=== PATIENT | male | born 1995 | race Caucasian/White ===

== ENCOUNTER 2017-06-28 08:20 | Emergency (ER) | payer MEDICARE, MEDICAID ==
[~2017-06-28] VITALS: Ht 167.6 cm; Wt 73.0 kg
[~2017-06-28 08:20] MED LIST: CLIN-79 PO; CLIN-80 PO; MUPI15CR TP; NO HOME MEDS
[2017-06-28 08:33] VITALS: BP 134/86
== END 2017-06-28 08:44 ==
LOC: ER 08:20
DX: Z02.89 Encounter for other administrative examinations (principal); F15.10 Other stimulant abuse, uncomplicated; F12.10 Cannabis abuse, uncomplicated
CPT/HCPCS: 99283

== ENCOUNTER 2020-05-15 20:28 | Emergency (ER) | payer MEDICAID, MEDICARE ==
[~2020-05-15] VITALS: Ht 182.9 cm; Wt 105.3 kg
[~2020-05-15 20:28] MED LIST changes: -CLIN-79 PO; -CLIN-80 PO; +CLIN-97 PO; +CLIN150C8 PO
[2020-05-15 20:36] VITALS: BP 141/91
[2020-05-15] MEDS ORDERED: CEPH500C5 PO (22:09)
[2020-05-15] MEDS ORDERED: SULF1TAB49 PO (22:09)
== END 2020-05-15 22:20 | disposition home or self-care (01) ==
LOC: ER 20:29
DX: L02.411 Cutaneous abscess of right axilla (principal); F12.90 Cannabis use, unspecified, uncomplicated; F15.90 Other stimulant use, unspecified, uncomplicated; F11.90 Opioid use, unspecified, uncomplicated; Z79.2 Long term (current) use of antibiotics
CPT/HCPCS: 99283

== ENCOUNTER 2020-06-25 23:55 | Emergency (ER) | payer MEDICAID ==
[~2020-06-25] VITALS: Ht 182.9 cm; Wt 97.0 kg
[2020-06-25 23:59] VITALS: BP 154/103
--- NOTE | 2020-06-26 00:14 | NUR ---
AREA OF REDNESS MARKED AND DATED WITH SKIN MARKER
[2020-06-26] MEDS ORDERED: SULF1TAB49 PO (00:44)
[2020-06-26] MEDS ORDERED: CEPH-585 PO (00:44)
== END 2020-06-26 01:14 | disposition left against medical advice (07) ==
LOC: ER 23:55
DX: L03.113 Cellulitis of right upper limb (principal); F17.200 Nicotine dependence, unspecified, uncomplicated; F12.90 Cannabis use, unspecified, uncomplicated; F15.90 Other stimulant use, unspecified, uncomplicated; F11.90 Opioid use, unspecified, uncomplicated; Z72.89 Other problems related to lifestyle; Z79.2 Long term (current) use of antibiotics; Z79.899 Other long term (current) drug therapy
CPT/HCPCS: 99284

== ENCOUNTER 2020-10-05 15:50 | Outpatient (CLI) | payer MEDICAID ==
[~2020-10-05 15:50] MED LIST changes: +CEPH-585 PO
== END 2020-10-05 23:59 | disposition home or self-care (01) ==
LOC: RAD 15:50
DX: F11.20 Opioid dependence, uncomplicated (principal)
CPT/HCPCS: 93005

== ENCOUNTER 2021-01-29 12:58 | Outpatient (CLI) | payer MEDICAID | END 2021-01-29 23:59 | disposition home or self-care (01) | LOC: RAD 12:58 | DX: R94.31 Abnormal electrocardiogram [ECG] [EKG] (principal); F11.20 Opioid dependence, uncomplicated | CPT/HCPCS: 93005 ==

== ENCOUNTER 2023-09-04 17:02 | Emergency (ER) | payer MEDICAID ==
[~2023-09-04] VITALS: Ht 177.8 cm; Wt 104.0 kg
[~2023-09-04 17:02] MED LIST changes: -CEPH-585 PO; +CLIN-214 PO; -CLIN150C8 PO
[2023-09-04 17:04] VITALS: BP 114/95; PULSE 67; O2SAT 97
[2023-09-04] MEDS ORDERED: ketorolac trometh inj. 60 MG/2 ML VIAL IM ONE (17:15)
[2023-09-04] MEDS ORDERED: AMOX-580 PO (17:18)
[2023-09-04] MEDS: dexamethasone sod phosphate 10mg/ml inj IM STA (17:27)
[2023-09-04] MEDS: ketorolac tromethamine 15mg/ml inj. IM ONE (17:28)
[2023-09-04 17:53] VITALS: RESP 16; TEMP 98.7
== END 2023-09-04 17:54 | disposition home or self-care (01) ==
LOC: ER 17:02
DX: K04.7 Periapical abscess without sinus (principal); K08.89 Other specified disorders of teeth and supporting structures; K02.9 Dental caries, unspecified; F12.90 Cannabis use, unspecified, uncomplicated; F15.90 Other stimulant use, unspecified, uncomplicated; Z79.2 Long term (current) use of antibiotics; Z79.899 Other long term (current) drug therapy
CPT/HCPCS: 96372; 99284; J1100; J1885